=== PATIENT | female | born 1990 | race American Indian/Alaskan Native ===

== ENCOUNTER 2020-08-31 20:24 | Inpatient (IN) | payer BC ==
[2020-08-31] MEDS ORDERED: NALOXONE 0.4 MG/1 ML INJ IV PRN (22:14)
[2020-08-31] MEDS ORDERED: fentaNYL 100 MCG/2 ML INJ IV PRN (22:14)
[2020-08-31] MEDS ORDERED: ONDANSETRON 4 MG/2 ML INJ IV PRN (22:14)
[2020-08-31] MEDS ORDERED: TERBUTALINE 1 MG/1 ML INJ SUB-Q PRN (22:14)
[2020-08-31] MEDS ORDERED: MINERAL OIL 30 ML ORAL LIQD PO PRN (22:14)
[2020-08-31] MEDS ORDERED: METHYLERGONOVINE MALEATE 0.2 MG/ML VIAL IM PRN (22:14)
[2020-08-31] MEDS ORDERED: LOPERAMIDE 2 MG CAP PO PRN (22:14)
[2020-08-31] MEDS ORDERED: OXYTOCIN 10 UNIT/1 ML INJ IM PRN (22:14)
[2020-08-31] MEDS ORDERED: CARBOPROST TROMETHAMINE 250 MCG/1 ML INJ IM PRN (22:14)
[2020-08-31] MEDS ORDERED: DINOPROSTONE 10 MG VAG SUPP VG ONE (22:14)
[2020-08-31] MEDS ORDERED: ePHEDrine SULFATE 50 MG/1 ML INJ IV PRN (22:14)
[2020-08-31] MEDS ORDERED: NalbUPHINE 10 MG/1 ML INJ IV PRN (22:14)
[2020-08-31] MEDS ORDERED: BUTORPHANOL 2 MG/1 ML INJ IV PRN (22:14)
[2020-08-31] MEDS ORDERED: LIDOCAINE (2%) 20 MG/1 ML VIAL 20 ML MDV INFILTRATI ONE (22:14)
[2020-08-31 22:57] LABS: Hematocrit 33.2 % (30.3-42.9); Hemoglobin 11.5 gm/dl (10.1-14.3); Mean Corpuscular HGB Conc 35 % (30-34); Mean Corpuscular Volume 90 fl (79-97); Platelet Count 220 K/mm3 (140-440); Red Cell Distribution Width 14.2 % (13.2-15.2)
[2020-08-31] MEDS: LACTATED RINGERS 1,000 ML IV SCH (22:59)
[2020-08-31] MEDS: OXYTOCIN DRIP 30 UNITS/500 ML BAG IV SCH (22:59)
[2020-09-01] MEDS: LACTATED RINGERS 1,000 ML IV SCH ×3 (07:21→21:30)
[2020-09-01] MEDS: valACYclovir 500 MG TAB PO SCH (10:04)
--- NOTE | 2020-09-01 21:43 | Anesthesia Consultation ---
Anesthesia Consult and Med Hx Date of service: 09/01/20 - Airway Anesthetic Teeth Evaluation: Good ROM Head & Neck: Adequate Mental/Hyoid Distance: Adequate Mallampati Class: Class III Intubation Access Assessment: Probably Good - Pulmonary Exam CTA: Yes - Cardiac Exam Cardiac Exam: RRR - Pre-Operative Health Status ASA Pre-Surgery Classification: ASA3 Proposed Anesthetic Plan: Epidural - Pre-Anesthesia Comment Pre-Anesthesia Comments: teeth extraction - Pulmonary Hx Smoking: No Hx Asthma: No Hx Respiratory Symptoms: No SOB: No COPD: No Home Oxygen Therapy: No Hx Pneumonia: No Hx Sleep Apnea: No - Cardiovascular System Hx Hypertension: No Hx Coronary Artery Disease: No Hx Heart Attack/AMI: No Hx Angina: No Hx Percutaneous Transluminal Coronary Angioplasty (PTCA): No Hx Cardia Arrhythmia: No Hx Pacemaker: No Hx Internal Defibrillator: No Hx Valvular Heart Disease: No Hx Heart Murmur: No Hx Peripheral Vascular Disease: No - Central Nervous System Hx Neuromuscular Disorder: No Hx Seizures: No CVA: No Hx Back Pain: No Hx Psychiatric Problems: No - Gastrointestinal Hx Ulcer: No Hx Gastroesophageal Reflux Disease: No - Endocrine Hx Renal Disease: No Hx End Stage Renal Disease: No Hx Cirrhosis: No Hx Liver Disease: No Hx Insulin Dependent Diabetes: No Hx Non-Insulin Dependent Diabetes: No Hx Thyroid Disease: No Hx Hypothyroidism: No Hx Hyperthyroidism: No - Hematic Hx Anemia: No Hx Sickle Cell Disease: No - Other Systems Hx Alcohol Use: No Hx Substance Use: No Hx Cancer: No Hx Obesity: Yes
--- NOTE | 2020-09-01 21:47 | Progress Note ---
Labor Epidural - Labor Epidural Start Time: 20:57 Stop Time: 21:11 Performed by:: IRENE NEUMANN Procedure: Patient is requesting combined spinal epidural for labor and pain. H&P, labs were reviewed. All questions and concerns were answered. Informed consent was obtained. Timeout performed. Patient in sitting position on side of bed. Sterile prep and drape was performed. 3 mL 1% lidocaine skin wheal at L [3]-L [4]. 18-gauge Tuohy epidural needle advanced to [id number] using air technique, [9cm]. 27-gauge spinal needle advanced, positive free-flowing CSF. Spinal dose of [Precedex 5mcg]. Epidural catheter advanced to [14] cm. [negative] Aspiration, [negative] test dose. Sterile dressing applied. Patient tolerated procedure well.
[2020-09-01] MEDS ORDERED: NALOXONE 2 MG/2 ML INJ IV PRN (22:23)
[2020-09-01] MEDS ORDERED: ePHEDrine SULFATE 50 MG/1 ML INJ IV PRN (22:23)
[2020-09-01] MEDS ORDERED: fentaNYL-BUPIV 2 MCG/ML-0.125% 200 MCG/100 ML BAG EPIDURAL ONE (22:23)
[2020-09-01] MEDS ORDERED: fentaNYL-BUPIV 2 MCG/ML-0.125% 200 MCG/100 ML BAG EPIDURAL SCH (23:00)
[2020-09-02] MEDS: LACTATED RINGERS 1,000 ML IV SCH ×3 (00:59→06:18)
[2020-09-02] MEDS: OXYTOCIN DRIP 30 UNITS/500 ML BAG IV SCH ×2 (01:00→08:06)
--- NOTE | 2020-09-02 10:14 | History and Physical Report ---
History of Present Illness Date of examination: 08/31/20 Date of admission: 08/31/20 20:24 Chief complaint: I'm here for my induction History of present illness: Pt is a 29 year old who presents for induction of labor secondary to obesity per APA and polyhydramnios. Pt has had an uncomplicated course. She is positive for HSV 2. She is GBS negative. 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 Family/Genetic History: hypertension Social history: - Obstetrical History Expected Date of Delivery: 09/05/20 Actual Gestation: 39 Week(s) 4 Day(s) : 1 Para: 0 Medications and Allergies Allergies Allergy/AdvReac Type Severity Reaction Status Date / Time No Known Allergies Allergy Verified 08/31/20 22:19 Home Medications Medication Instructions Recorded Confirmed Last Taken Type Vitamin 1 tab PO DAILY 08/31/20 08/31/20 1 Day Ago History ~08/30/20 valACYclovir [Valtrex] 1 tab PO DAILY 08/31/20 08/31/20 1 Day Ago History ~08/30/20 Active Meds: Active Medications Butorphanol Tartrate (Stadol) 2 mg IV Q2H PRN PRN Reason: Pain , Severe (7-10) Carboprost Tromethamine (Hemabate) 250 mcg IM ONCE PRN PRN Reason: Uterine Bleeding Ephedrine Sulfate (Ephedrine Sulfate) 10 mg IV Q2M PRN PRN Reason: Hypotension Ephedrine Sulfate (Ephedrine Sulfate) 10 mg IV Q2M PRN PRN Reason: Hypotension Oxytocin/Sodium Chloride (Pitocin/Ns 30 Unit/500ml) 30 units in 500 mls @ 2 mls/hr IV TITR SHABNAM; Protocol Last Admin: 09/02/20 08:06 Dose: 31 ml/hr, 31 mls/hr Documented by: Lactated Ringer's (Lactated Ringers) 1,000 mls @ 125 mls/hr IV DIRECT SHABNAM Last Admin: 09/02/20 06:18 Dose: 125 mls/hr Documented by: Fentanyl/Bupivacaine/Sodium Chlor (Fentanyl-Bupiv 2 Mcg/Ml-0.125%) 200 mcg in 100 mls @ 12 mls/hr EPIDURAL TITR SHABNAM; Protocol Loperamide HCl (Imodium) 2 mg PO ONCE PRN PRN Reason: give with Hemabate Methylergonovine Maleate (Methergine) 0.2 mg IM ONCE PRN PRN Reason: Uterine Bleeding Mineral Oil (Mineral Oil) 30 ml PO QHS PRN PRN Reason: Constipation Naloxone HCl (Naloxone) 0.1 mg IV Q2MIN PRN PRN Reason: Res Rate </= 8 or 02 SAT < 92% Naloxone HCl (Naloxone) 0.2 mg IV Q5M PRN PRN Reason: Respiratory sedation Ondansetron HCl (Zofran) 4 mg IV Q8H PRN PRN Reason: Nausea And Vomiting Terbutaline Sulfate (Brethine) 0.25 mg SUB-Q ONCE PRN PRN Reason: Hyperstimulation/Hypertonicity Valacyclovir HCl (Valtrex) 500 mg PO DAILY SHABNAM Stop: 09/05/20 10:00 Last Admin: 09/01/20 10:04 Dose: 500 mg Documented by: Review of Systems All systems: negative Genitourinary: pelvic pain - Vital Signs Vital signs: Vital Signs Pulse BP Pulse Ox 94 H 124/81 100 08/31/20 21:48 08/31/20 21:48 08/31/20 21:48 Temp Pulse Resp BP Pulse Ox 97.5 F L 96 H 18 147/70 100 09/02/20 08:00 09/02/20 10:08 09/02/20 08:00 09/02/20 09:58 09/02/20 10:08 - Physical Exam Breasts: Positive: deferred Cardiovascular: Regular rate, Normal S1, Normal S2 Lungs: Positive: Clear to auscultation, Normal air movement Abdomen: Positive: normal appearance, soft, normal bowel sounds. Negative: distention, tenderness Genitourinary (Female): Positive: normal external genitalia, normal perenium Vulva: both: normal Vagina: Positive: normal moisture. Negative: discharge Cervix: Negative: lesion, discharge Uterus: Positive: normal size, normal contour Adnexa: both: normal Anus/Rectum: Positive: normal perianal skin, heme negative. Negative: rectal mass, hemorrhoids Extremities: Deep Tendon Reflex Grade: Normal +2 - Obstetrical FHR: auscultation normal Cervical Dilatation: 1 Cervical Effacement Percentage: 50 station: -2 Uterine Contraction Pattern: Absent Uterine Contraction Intensity: Mild Results Result Diagrams: 08/31/20 21:45 All other labs normal. Assessment and Plan IUP at 39.2 weeks here for induction of labor. Will admit for induction of labor. Begin pitocin overnight. Anticipate .
--- NOTE | 2020-09-02 10:20 | Post Anesthesia Evaluation ---
- Post Anesthesia Evaluation Patient Participated: Yes Airway Patent: Yes Stable Respiratory Function: Yes Nausea/Vomiting: No Temp > 96.8F: Yes Pain Manageable: Yes Adequeate Hydration: Yes Anesthesia Complications: No Block Receding Appropriately: Yes Patient on Ventilator: No
--- NOTE | 2020-09-02 10:45 | Procedure Note ---
OB Delivery Note - Delivery Date of Delivery: 09/02/20 Surgeon: DEVAN SMITH Estimated blood loss: 200cc - Vaginal Delivery presentation: vertex Delivery position: OA Intrapartum events: none Delivery induction: none Delivery augmentation: rupture of membranes, pitocin Delivery monitor: external FHT, external uterine Route of delivery: Delivery placenta: spontaneous Delivery cord: nuchal cord, 3 umbilical vessels Episiotomy: none Delivery laceration: 1st degree, vaginal side wall Delivery repair: vicryl Anesthesia: epidural Delivery comments: Viable female delivered over intact perineum with loose nuchal cord easily reduced. Weight 8 pounds 2 ounces 3672 grams. 1st degree laceration repaired with 3.0 vicryl. Placenta delivered spontaneously and intact with 3vc. Excellent hemostasis. Pt tolerated procedure well. - Infant A at 1 minute: 7 at 5 minutes: 9 Infant Gender: Female
[2020-09-02] MEDS: valACYclovir 500 MG TAB PO SCH (11:30)
[2020-09-02] MEDS ORDERED: WITCH HAZEL/ GLYCERIN PAD TP PRN (12:50)
[2020-09-02] MEDS ORDERED: MAGNESIUM HYDROXIDE (MOM) ORAL LIQD UDC PO PRN (12:50)
[2020-09-02] MEDS ORDERED: PROMETHAZINE 25 MG TAB PO PRN (12:50)
[2020-09-02] MEDS ORDERED: ONDANSETRON 4 MG/2 ML INJ IV PRN (12:50)
[2020-09-02] MEDS ORDERED: LANOLIN/ZINC/DIMETHICONE (LANSINOH) 7 GM TP PRN (12:50)
[2020-09-02] MEDS ORDERED: HYDROcodone/ACETAMINOPHEN 5-325 MG TAB PO PRN (12:50)
[2020-09-02] MEDS ORDERED: KETOROLAC 30 MG/1 ML INJ IV PRN (12:50)
[2020-09-02] MEDS ORDERED: diphenhydrAMINE 25 MG CAP PO PRN (12:50)
[2020-09-02] MEDS: IBUPROFEN 600 MG TAB PO SCH ×2 (16:46→16:58)
[2020-09-02] MEDS: DOCUSATE SODIUM 100 MG CAP PO SCH (22:18)
[2020-09-03 00:37] LABS: Hematocrit 25.4 % (30.3-42.9)
[2020-09-03] MEDS ORDERED: PRENATAL VIT27-FE FUMARATE-FOLIC ACID VIT TAB PO SCH (10:00)
[2020-09-03] MEDS: DOCUSATE SODIUM 100 MG CAP PO SCH (10:30)
[2020-09-03] MEDS: IBUPROFEN 600 MG TAB PO SCH (10:30)
[2020-09-03] MEDS ORDERED: MEASLES, MUMPS & RUBELLA 12,500 UNIT/0.5 ML VACCINE SUB-Q ONE (10:45)
--- NOTE | 2020-09-03 11:41 | Progress Note ---
Assessment and Plan - Patient Problems (1) Normal spontaneous vaginal delivery Current Visit: Yes Status: Acute Plan to address problem: Patient doing well Discharge home Subjective - Subjective Date of service: 09/03/20 Interval history: Patient without any significant complaints. She reports that her lochia is decreasing. Her pain is well controlled. Patient reports: appetite normal, voiding normally, pain well controlled : doing well Objective - Vital Signs Latest vital signs: Vital Signs Temp Pulse Resp BP BP Pulse Ox 09/03/20 08:11 98.3 F 91 H 20 129/78 100 09/03/20 00:55 98.9 F 86 20 116/70 100 09/02/20 18:26 109 H 99 09/02/20 16:28 98.9 F 115 H 18 124/82 100 09/02/20 12:51 98.6 F 103 H 20 114/79 Intake and Output 09/02/20 09/03/20 09/03/20 22:59 06:59 14:59 Intake Total 240 240 Output Total 1000 Balance -760 240 Intake: Oral 240 240 Output: Urine 1000 Void 1000 Other: Total, Intake Amount 240 240 Total, Output Amount 500 # Voids Void 1 1 1 - Exam Uterus: Present: normal, firm - Labs Labs: Abnormal lab results 09/03/20 Range/Units 00:15 Hgb 9.0 L (10.1-14.3) gm/dl Hct 25.4 L D (30.3-42.9) %
--- NOTE | 2020-09-03 11:42 | Discharge Summary ---
Providers - Providers Date of Admission: 08/31/20 20:24 Date of discharge: 09/03/20 Attending physician: DEVAN SMITH Primary care physician: DEVAN SMITH Hospitalization Reason for admission: induction of labor Delivery: Discharge diagnosis: IUP at term delivered Hospital course: The patient was admitted for induction secondary to polyuria hydramnios. Patient had successful vaginal delivery. course was uneventful. Condition at discharge: Good Disposition: DC-01 TO HOME OR SELFCARE - Discharge Diagnoses (1) Normal spontaneous vaginal delivery Status: Acute Plan - Discharge Medications Prescriptions: Ibuprofen [Motrin] 800 mg PO Q8HR PRN #40 tablet PRN Reason: Pain, Mild (1-3) Ibuprofen [Motrin] 800 mg PO Q8HR PRN #30 tablet PRN Reason: Pain , Severe (7-10) HYDROcodone/APAP 5-325 [[place] 5/325] 1 each PO Q6HR PRN #15 tablet PRN Reason: Pain HYDROcodone/APAP 5-325 [[place] 5/325] 1 each PO Q6HR PRN #15 tablet PRN Reason: Pain - Provider Discharge Summary Activity: no sex for 6 weeks, no heavy lifting 4 weeks, no strenuous exercise Diet: routine Instructions: routine Additional instructions: [] Smoking cessation referral if applicable(refer to patient education folder for contact #) [] Refer to [facility] Booklet Call your doctor immediately for: * Fever > 100.5 * Heavy vaginal bleeding ( >1 pad per hour) * Severe persistent headache * Shortness of breath * Reddened, hot, painful area to leg or breast * Schedule visit in 4 weeks - Follow up plan
[2020-09-03 13:13] VITALS: BP 116/66
== END 2020-09-03 15:52 | disposition home or self-care (01) | DRG 806 ==
LOC: LD 20:24 → OB 09-02 14:33
PROVIDERS: ADMIT Obstetrics & Gynecology; ATTEND Obstetrics & Gynecology
PROC: 10E0XZZ Delivery of Products of Conception, External Approach (ICD-10-PCS; principal; 2020-09-02)
PROC: 3E0R3BZ Introduction of Anesthetic Agent into Spinal Canal, Percutaneous Approach (ICD-10-PCS; 2020-09-02)
PROC: 00HU33Z Insertion of Infusion Device into Spinal Canal, Percutaneous Approach (ICD-10-PCS; 2020-09-02)
PROC: 0HQ9XZZ Repair Perineum Skin, External Approach (ICD-10-PCS; 2020-09-02)
PROC: 3E0234Z Introduction of Serum, Toxoid and Vaccine into Muscle, Percutaneous Approach (ICD-10-PCS; 2020-09-03)
DX: O69.81X0 Labor and delivery complicated by cord around neck, without compression, not applicable or unspecified (principal); D62 Acute posthemorrhagic anemia; Z37.0 Single live birth; O99.214 Obesity complicating childbirth; E66.9 Obesity, unspecified; O70.0 First degree perineal laceration during delivery; Z20.828 Contact with and (suspected) exposure to other viral communicable diseases; O40.3XX0 Polyhydramnios, third trimester, not applicable or unspecified; Z23 Encounter for immunization; Z3A.39 39 weeks gestation of pregnancy; Z82.49 Family history of ischemic heart disease and other diseases of the circulatory system; O90.81 Anemia of the puerperium
CPT/HCPCS: 36415; 85014; 85018; 85027; 86592; 86850; 86900; 86901; G0378; J2590; J7120; U0003

== ENCOUNTER 2022-03-06 08:49 | Inpatient (IN) | payer BC ==
[2022-03-06] MEDS ORDERED: OXYTOCIN 10 UNIT/1 ML INJ IM PRN (09:49)
[2022-03-06] MEDS ORDERED: CARBOPROST TROMETHAMINE 250 MCG/1 ML INJ IM PRN (09:49)
[2022-03-06] MEDS ORDERED: LIDOCAINE (2%) 20 MG/1 ML VIAL 20 ML MDV INFILTRATI ONE ×2 (09:49→19:24)
[2022-03-06] MEDS ORDERED: fentaNYL 100 MCG/2 ML INJ IV PRN (10:00)
[2022-03-06] MEDS ORDERED: miSOPROStol 200 MCG TAB PR PRN (10:00)
[2022-03-06] MEDS ORDERED: TERBUTALINE 1 MG/1 ML INJ SUB-Q PRN (10:00)
[2022-03-06] MEDS ORDERED: METHYLERGONOVINE MALEATE 0.2 MG/ML VIAL IM PRN (10:00)
[2022-03-06] MEDS ORDERED: ePHEDrine SULFATE 50 MG/1 ML INJ IV PRN (10:00)
[2022-03-06] MEDS ORDERED: ONDANSETRON 4 MG/2 ML INJ IV PRN ×2 (10:00→20:18)
[2022-03-06] MEDS ORDERED: ACETAMINOPHEN 325 MG TAB PO PRN (10:00)
[2022-03-06] MEDS ORDERED: NalbUPHINE 10 MG/1 ML INJ IV PRN (10:00)
[2022-03-06] MEDS ORDERED: BUTORPHANOL 2 MG/1 ML INJ IV PRN ×2 (10:00)
[2022-03-06] MEDS ORDERED: OXYTOCIN DRIP 30 UNITS/500 ML BAG IV SCH (10:00)
[2022-03-06] MEDS ORDERED: LOPERAMIDE 2 MG CAP PO PRN (10:00)
[2022-03-06] MEDS: OXYTOCIN DRIP 30 UNITS/500 ML BAG IV SCH ×6 (11:37→17:31)
[2022-03-06] MEDS: LACTATED RINGERS 1,000 ML IV SCH ×3 (11:38→18:46)
[2022-03-06 11:51] LABS: Hematocrit 32.9 % (30.3-42.9); Hemoglobin 10.9 gm/dl (10.1-14.3); Mean Corpuscular HGB Conc 33 % (30-34); Mean Corpuscular Volume 89 fl (79-97); Platelet Count 235 K/mm3 (140-440); Red Blood Count 3.69 M/mm3 (3.65-5.03); Red Cell Distribution Width 13.9 % (13.2-15.2)
--- NOTE | 2022-03-06 19:38 | Procedure Note ---
OB Delivery Note - Delivery Date of Delivery: 03/06/22 Surgeon: YANETH AGUILAR Barrelhead Inspector: SOL MICHEL - Vaginal Intrapartum events: none Delivery induction: oxytocin Delivery augmentation: rupture of membranes, pitocin Delivery monitor: external FHT, external uterine Route of delivery: Delivery placenta: spontaneous Delivery cord: 3 umbilical vessels Episiotomy: none Delivery laceration: other (left periurethral) Anesthesia: none Delivery comments: Patient presented to labor and delivery for IOL due to Maternal obesity at 39.6wks. She was induced with pitocin and Arom clear. of viable baby girl, 8/9 apgars, 3790g @1912 on 03/06/22. right periurethral laceration, 2% lidocaine administered and 100mcg of fentanyl ivp. Dr Murdock presented in room and completed to suture patient using a 3.0 vycril. unknown QBL at this time. - Infant A at 1 minute: 8 at 5 minutes: 9 Gender: Female (3790g)
--- NOTE | 2022-03-06 20:15 | History and Physical Report ---
History of Present Illness Date of examination: 03/06/22 Date of admission: 03/06/22 09:49 Chief complaint: I am here for my induction History of present illness: Patient is a 31-year-old 2 para 1 who presents for induction of labor secondary to obesity at 39 6/7 weeks with EDC 03/07/2022. Her course has been uncomplicated except for positive HSV-2, which has been treated with Valtrex since 36 weeks. 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: - Obstetrical History Expected Date of Delivery: 03/07/22 Actual Gestation: 39 Week(s) 6 Day(s) : 2 Para: 1 Number of Living Children: 1 Medications and Allergies Allergies Allergy/AdvReac Type Severity Reaction Status Date / Time No Known Allergies Allergy Verified 03/06/22 09:49 Home Medications Medication Instructions Recorded Confirmed Last Taken Type Vitamin 1 tab PO DAILY 08/31/20 08/31/20 1 Day Ago History ~08/30/20 valACYclovir [Valtrex] 1 tab PO DAILY 08/31/20 08/31/20 1 Day Ago History ~08/30/20 HYDROcodone/APAP 5-325 [[place] 1 each PO Q6HR PRN #15 tablet 09/02/20 Unknown Rx 5/325] Ibuprofen [Motrin] 800 mg PO Q8HR PRN #40 tablet 09/02/20 Unknown Rx HYDROcodone/APAP 5-325 [[place] 1 each PO Q6HR PRN #15 tablet 09/03/20 Unknown Rx 5/325] Ibuprofen [Motrin] 800 mg PO Q8HR PRN #30 tablet 09/03/20 Unknown Rx Active Meds: Active Medications Acetaminophen (Acetaminophen 325 Mg Tab) 650 mg PO Q4H PRN PRN Reason: Pain, Mild (1-3) Butorphanol Tartrate (Butorphanol 2 Mg/1 Ml Inj) 1 mg IV Q2H PRN PRN Reason: Pain, Moderate(4-6) LABOR PAIN Butorphanol Tartrate (Butorphanol 2 Mg/1 Ml Inj) 2 mg IV Q2H PRN PRN Reason: Pain , Severe (7-10) Carboprost Tromethamine (Carboprost Tromethamine 250 Mcg/1 Ml Inj) 250 mcg IM ONCE PRN PRN Reason: Uterine Bleeding Ephedrine Sulfate (Ephedrine Sulfate 50 Mg/1 Ml Inj) 10 mg IV Q2M PRN PRN Reason: Hypotension Fentanyl (Fentanyl 100 Mcg/2 Ml Inj) 100 mcg IV Q2H PRN PRN Reason: Pain,Severe (7-10) LABOR PAIN Last Admin: 03/06/22 19:21 Dose: 100 mcg Oxytocin/Sodium Chloride (Pitocin/Ns 30 Unit/500ml) 30 units in 500 mls @ 2 mls/hr IV TITR SHABNAM; Protocol Last Admin: 03/06/22 17:31 Dose: 12 ml/hr, 12 mls/hr Lactated Ringer's (Lactated Ringers) 1,000 mls @ 125 mls/hr IV DIRECT SHABNAM Last Admin: 03/06/22 18:46 Dose: 125 mls/hr Oxytocin/Sodium Chloride (Pitocin/Ns 30 Unit/500ml) 30 units in 500 mls @ 40 mls/hr IV TITR SHABNAM; Protocol Last Admin: 03/06/22 19:17 Dose: 40 mls/hr, 40 mls/hr Loperamide HCl (Loperamide 2 Mg Cap) 2 mg PO ONCE PRN PRN Reason: give with Hemabate Methylergonovine Maleate (Methylergonovine Maleate 0.2 Mg/Ml Vial) 0.2 mg IM ONCE PRN PRN Reason: Uterine Bleeding Mineral Oil (Mineral Oil 30 Ml Oral Liqd) 30 ml PO QHS PRN PRN Reason: Constipation Misoprostol (Misoprostol 200 Mcg Tab) 800 mcg [place] ONCE PRN PRN Reason: Uterine Bleeding Nalbuphine HCl (Nalbuphine 10 Mg/1 Ml Inj) 10 mg IV Q2H PRN PRN Reason: Pain, Moderate (4-6) Ondansetron HCl (Ondansetron 4 Mg/2 Ml Inj) 4 mg IV Q8H PRN PRN Reason: Nausea And Vomiting Oxytocin (Oxytocin 10 Unit/1 Ml Inj) 10 unit IM ONCE PRN PRN Reason: Uterine Bleeding Terbutaline Sulfate (Terbutaline 1 Mg/1 Ml Inj) 0.25 mg SUB-Q ONCE PRN PRN Reason: Hyperstimulation/Hypertonicity Review of Systems All systems: negative Eyes: deferred Gastrointestinal: abdominal pain Genitourinary: contractions - Vital Signs Vital signs: Vital Signs Pulse BP 80 117/68 03/06/22 09:27 03/06/22 09:27 Temp Pulse Resp BP Pulse Ox 98.8 F 79 16 117/61 90 03/06/22 17:15 03/06/22 19:54 03/06/22 11:25 03/06/22 19:54 03/06/22 19:53 - Physical Exam Breasts: Cardiovascular: Regular rate, Normal S1, Normal S2 Lungs: Positive: Clear to auscultation, Normal air movement Abdomen: Positive: normal appearance, soft, normal bowel sounds. Negative: distention, tenderness Genitourinary (Female): Positive: normal external genitalia, normal perenium Vulva: both: normal Vagina: Positive: normal moisture. Negative: discharge Cervix: Negative: lesion, discharge Uterus: Positive: normal size, normal contour Adnexa: both: normal Anus/Rectum: Positive: normal perianal skin, heme negative. Negative: rectal mass, hemorrhoids Extremities: Deep Tendon Reflex Grade: Normal +2 - Obstetrical FHR: auscultation normal Cervical Dilatation: 2.5 Cervical Effacement Percentage: 50 station: -2 Uterine Contraction Pattern: Irregular Uterine Contraction Intensity: Moderate Results Result Diagrams: 03/06/22 Unknown All other labs normal. Assessment and Plan IUP at 39-6/7 weeks here for induction secondary to obesity. Will admit and begin Pitocin therapy. Patient may have epidural when ready. We will AROM when able. Anticipate .
[2022-03-06] MEDS ORDERED: LANOLIN/ZINC/DIMETHICONE (LANSINOH) 7 GM TP PRN (20:18)
[2022-03-06] MEDS ORDERED: diphenhydrAMINE 25 MG CAP PO PRN (20:18)
[2022-03-06] MEDS ORDERED: WITCH HAZEL/ GLYCERIN PAD TP PRN (20:18)
[2022-03-06] MEDS ORDERED: HYDROcodone/ACETAMINOPHEN 5-325 MG TAB PO PRN (20:18)
[2022-03-06] MEDS ORDERED: PROMETHAZINE 25 MG RECT SUPP PR PRN (20:18)
[2022-03-06] MEDS ORDERED: PROMETHAZINE 25 MG TAB PO PRN (20:18)
[2022-03-06] MEDS ORDERED: MAGNESIUM HYDROXIDE (MOM) ORAL LIQD UDC PO PRN (20:18)
[2022-03-06] MEDS ORDERED: MINERAL OIL 30 ML ORAL LIQD PO PRN (22:00)
[2022-03-06] MEDS: IBUPROFEN 800 MG TAB PO SCH (22:37)
[2022-03-06] MEDS: DOCUSATE SODIUM 100 MG CAP PO SCH (22:40)
[2022-03-07] MEDS: IBUPROFEN 800 MG TAB PO SCH ×3 (05:49→15:56)
[2022-03-07 08:31] LABS: Hematocrit 27.5 % (30.3-42.9); Hemoglobin 9.3 gm/dl (10.1-14.3)
[2022-03-07] MEDS ORDERED: PRENATAL VIT27-FE FUMARATE-FOLIC ACID VIT TAB PO SCH (10:00)
[2022-03-07] MEDS: DOCUSATE SODIUM 100 MG CAP PO SCH (10:31)
--- NOTE | 2022-03-07 16:33 | Progress Note ---
Assessment and Plan PPD 1 s/p . Doing well. Pt would like to be discharged on today.Plan for follow up in the office in 6 weeks. Subjective - Subjective Date of service: 03/07/22 Principal diagnosis: Spontaneous vaginal delivery Interval history: Patient is a 31-year-old 2 para 1 who presents for induction of labor secondary to obesity at 39 6/7 weeks with EDC 03/07/2022. Her course has been uncomplicated except for positive HSV-2, which has been treated with Valtrex since 36 weeks. She is GBS negative Patient reports: appetite normal, voiding normally, pain well controlled : doing well Objective - Vital Signs Latest vital signs: Vital Signs Temp Pulse Resp BP BP Pulse Ox Pulse Ox 03/07/22 08:38 99 03/07/22 08:13 98.6 F 79 18 108/56 100 03/07/22 04:38 98.0 F 85 20 112/60 99 03/07/22 01:28 98.7 F 96 H 20 116/64 99 03/06/22 22:05 98.1 F 79 21 121/59 99 99 03/06/22 21:12 88 90 03/06/22 21:08 72 98 03/06/22 21:05 98 H 93 03/06/22 21:03 89 97 03/06/22 20:58 89 97 03/06/22 20:53 95 H 99 03/06/22 20:52 88 94 03/06/22 20:48 80 95 03/06/22 20:43 89 100 03/06/22 20:38 87 97 03/06/22 20:33 82 98 03/06/22 20:28 97 H 99 03/06/22 20:23 88 98 03/06/22 20:18 96 H 83 L 03/06/22 20:13 69 99 03/06/22 20:08 76 99 03/06/22 20:07 98.9 F 03/06/22 20:03 78 98 03/06/22 19:58 93 H 100 03/06/22 19:54 79 117/61 03/06/22 19:53 87 90 03/06/22 19:52 86 90 03/06/22 19:48 86 81 L 03/06/22 19:45 80 86 03/06/22 19:43 86 100 03/06/22 19:38 71 99 03/06/22 19:33 77 100 03/06/22 19:29 95 H 141/65 03/06/22 19:28 89 100 03/06/22 19:23 87 98 03/06/22 19:18 113 H 100 03/06/22 19:13 110 H 99 03/06/22 19:08 109 H 99 03/06/22 19:03 117 H 100 03/06/22 19:00 103 H 89 03/06/22 18:59 93 H 132/70 03/06/22 18:57 95 H 98 03/06/22 18:52 89 100 03/06/22 18:51 82 87 03/06/22 18:47 95 H 100 03/06/22 18:46 98 H 92 03/06/22 18:41 100 H 99 03/06/22 18:39 103 H 75 L 03/06/22 18:36 89 100 03/06/22 18:34 96 H 94 03/06/22 18:31 96 H 131/77 100 03/06/22 18:26 85 100 03/06/22 18:21 80 100 03/06/22 18:16 71 100 03/06/22 18:11 70 99 03/06/22 18:06 95 H 100 03/06/22 18:01 94 H 100 03/06/22 18:00 86 122/71 03/06/22 17:56 74 100 03/06/22 17:51 80 100 03/06/22 17:46 76 100 03/06/22 17:41 99 H 100 03/06/22 17:36 86 100 03/06/22 17:31 80 100 03/06/22 17:29 75 118/60 03/06/22 17:26 91 H 100 03/06/22 17:21 79 100 03/06/22 17:16 74 100 03/06/22 17:15 98.8 F 03/06/22 17:11 92 H 100 03/06/22 17:10 71 116/67 98 03/06/22 17:08 91 H 78 L 03/06/22 17:06 102 H 100 03/06/22 17:01 82 100 03/06/22 16:56 70 100 03/06/22 16:51 74 100 03/06/22 16:46 92 H 100 03/06/22 16:41 86 100 03/06/22 16:36 80 92 Intake and Output 03/07/22 03/07/22 03/07/22 06:59 14:59 22:59 Intake Total 480 120 Output Total 700 400 Balance -220 -280 Intake: Oral 480 120 Output: Urine 700 400 Void 700 400 Other: Total, Intake Amount 240 120 Total, Output Amount 300 400 # Voids Void 3 - Exam Breasts: Present: deferred Cardiovascular: Present: Regular rate, Normal S1, Normal S2 Lungs: Present: Clear to auscultation, Normal air movement Abdomen: Present: normal appearance, soft, normal bowel sounds Vulva: both: normal Uterus: Present: normal, firm Extremities: Present: normal Deep Tendon Reflex Grade: Normal +2 - Labs Labs: Abnormal lab results 03/07/22 Range/Units 08:19 Hgb 9.3 L (10.1-14.3) gm/dl Hct 27.5 L (30.3-42.9) %
--- NOTE | 2022-03-07 16:37 | Discharge Summary ---
Providers - Providers Date of Admission: 03/06/22 09:49 Date of discharge: 03/07/22 Attending physician: DEVAN SMITH Primary care physician: CARMEN DIAZ Hospitalization Reason for admission: induction of labor Delivery: Episiotomy: none Laceration: other (subclitoral) Other procedures: none complications: none Discharge diagnosis: IUP at term delivered baby: female Hospital course: unremarkable Condition at discharge: Good Disposition: 01 HOME / SELF CARE / HOMELESS Plan - Discharge Medications Prescriptions: Ibuprofen [Motrin] 800 mg PO Q8HR PRN #40 tablet PRN Reason: Pain, Moderate (4-6) HYDROcodone/APAP 5-325 [[place] 5/325] 1 each PO Q6HR PRN #15 tablet PRN Reason: Pain - Provider Discharge Summary Activity: routine, no sex for 6 weeks, no heavy lifting 4 weeks, no strenuous exercise Diet: routine Instructions: routine Additional instructions: [] Smoking cessation referral if applicable(refer to patient education folder for contact #) [] Refer to [facility] Booklet Call your doctor immediately for: * Fever > 100.5 * Heavy vaginal bleeding ( >1 pad per hour) * Severe persistent headache * Shortness of breath * Reddened, hot, painful area to leg or breast * Drainage or odor from incision. * Keep incision clean and dry at all times and follow doctor's instructions regarding bathing/showering - Follow up plan Follow up: CARMEN DIAZ MD [Primary Care Provider] - 7 Days DEVAN SMITH MD [Staff Physician] - 6 Weeks
[2022-03-07 20:59] VITALS: BP 125/80
== END 2022-03-07 22:00 | disposition home or self-care (01) | DRG 806 ==
LOC: LD 08:49 → UNDOADMIN 08:49 → LD 09:49 → OB 21:25
PROVIDERS: ADMIT Obstetrics & Gynecology; ATTEND Obstetrics & Gynecology
PROC: 10E0XZZ Delivery of Products of Conception, External Approach (ICD-10-PCS; principal; 2022-03-06)
PROC: 3E033VJ Introduction of Other Hormone into Peripheral Vein, Percutaneous Approach (ICD-10-PCS; 2022-03-06)
PROC: 0UQMXZZ Repair Vulva, External Approach (ICD-10-PCS; 2022-03-06)
PROC: 10907ZC Drainage of Amniotic Fluid, Therapeutic from Products of Conception, Via Natural or Artificial Opening (ICD-10-PCS; 2022-03-06)
DX: O99.214 Obesity complicating childbirth (principal); O98.32 Other infections with a predominantly sexual mode of transmission complicating childbirth; Z37.0 Single live birth; Z3A.39 39 weeks gestation of pregnancy; Z20.822 Contact with and (suspected) exposure to COVID-19; A60.00 Herpesviral infection of urogenital system, unspecified; O71.82 Other specified trauma to perineum and vulva
CPT/HCPCS: 36415; 85014; 85018; 85027; 86592; 86850; 86900; 86901; 99211; G0378; J3490; G0463; J2590; J3010; J7120; U0003